=== PATIENT | female | born 1940 | race Caucasian/White ===

== ENCOUNTER → 2020-03-29 12:15 | Outpatient (BNVA) | payer MEDICARE, OTHER, SELFPAY | PROVIDERS: Family Provider Nurse Practitioner Primary Care; PCP Nurse Practitioner Primary Care; Visit Provider Family Medicine | DX: I48.11 Longstanding persistent atrial fibrillation (principal); I51.7 Cardiomegaly | CPT/HCPCS: 85610 ==